=== PATIENT | female | born 1960 | race Caucasian/White ===

== ENCOUNTER 2020-08-22 13:37 | Observation (INO) | payer MEDICARE ==
[~2020-08-22] VITALS: Ht 162.6 cm; Wt 78.6 kg
--- NOTE | 2020-08-22 13:40 | NUR ---
PT IMMEDIATELY TO ROOM 14 VIA WHEELCHAIR WITH NEIGHBOR/FRIEND. BEDSIDE TRIAGE COMPLETED.
[2020-08-22 14:10] LABS: HEMATOCRIT 38.4 % (37.0-47.0); HEMOGLOBIN 13.1 g/dl (12.0-16.0); IMMATURE GRANULOCYTES 0.1 % (0.0-5.0); MEAN CELL VOLUME 88.3 fL CALC (80.0-100.0); MEAN CORPUSCULAR HGB 30.1 pG CALC (26.0-32.0); MEAN CORPUSCULAR HGB CONC 34.1 g/dL CAL (32.0-36.0); NEUT# 4.36 thou/uL (2.00-7.15); RED BLOOD COUNT 4.35 mill/uL (4.20-5.60); RED CELL DISTRI WIDTH 13.2 % (11.5-15.5)
--- NOTE | 2020-08-22 14:14 | NUR ---
Reassessment of patient completed. No distress noted.
[2020-08-22] MEDS ORDERED: METOPROL TAR100 MG PO (14:16)
[2020-08-22] MEDS ORDERED: OMEPRAZOLE20 MG PO (14:16)
[2020-08-22] MEDS ORDERED: SIMVASTATIN40 MG PO (14:16)
[2020-08-22] MEDS ORDERED: LISINOPRIL20 M1 PO (14:16)
[2020-08-22] MEDS ORDERED: METFORMIN HCL1000 MG PO (14:17)
[2020-08-22] MEDS ORDERED: LANTUS100 UNIT/M SC (14:17)
[2020-08-22] MEDS ORDERED: ASPIRIN 81 LOW81 MG PO (14:21)
[2020-08-22] MEDS ORDERED: NOVOLOG100 UNIT/M SC (14:21)
[2020-08-22] MEDS ORDERED: MAGNESIUM500 MG PO (14:22)
[2020-08-22] MEDS ORDERED: ZINC50 M1 PO (14:22)
[2020-08-22] MEDS ORDERED: POTASSIUM GLUC PO (14:22)
[2020-08-22] MEDS ORDERED: L-LYSINE1000 M1 PO (14:23)
[2020-08-22 14:24] LABS: ALBUMIN 4.8 g/dL (3.2-5.0); ALKALINE PHOSPHATASE 59 u/l (38-126); ANION GAP 14 (6-22 (CALC)); BILIRUBIN, TOTAL 0.7 mg/dL (0.0-1.4); BUN 13 mg/dL (8-23); BUN/CREATININE RATIO 14 (12-20 (CALC)); CARBON DIOXIDE 28 mmol/l (22-30); CHLORIDE 99 mmol/l (95-108); CREATININE 0.9 mg/dL (0.5-1.0); GFR > 60 ML/MIN (>=60 (CALC)); GFR FOR AFR.AMER. > 60 ML/MIN (>=60 (CALC)); SGOT/AST 47 u/l (9-36); SODIUM 137 mmol/l (137-146); TOTAL PROTEIN 7.6 g/dL (6.3-8.2)
--- NOTE | 2020-08-22 15:15 | NUR ---
Reassessment of patient completed. No distress noted.
--- NOTE | 2020-08-22 16:11 | NUR ---
Reassessment of patient completed. No distress noted.
--- NOTE | 2020-08-22 16:23 | NUR ---
REPORT CALLED TO SEAL
--- NOTE | 2020-08-22 16:51 | NUR ---
PT STABLE TRANSPORTED TO [facility] ON TELE BY SEAN
[2020-08-22 16:55] VITALS: BP 130/66
--- NOTE | 2020-08-22 17:01 | NUR ---
REPORT RECEIVED FROM TUCKER IN ED, PT ARRIVED ON UNIT VIA STRETCHER TRANSPORTED BY ED STAFF. ALERT AND ORIENTED X 4, C/O OR MIDSTERNAL PAIN @ 2/10, ORIENTED TO ROOM AND CALL BLOOD, SETTLED, EDUCATED ON INFECTION CONTROL (HAND HYGIENE, SOCIAL DISTANCING, MASK WEARING), WILL CONTINUE TO MONITOR AND ASSESS.
[2020-08-22 20:00] VITALS: BP 131/75
--- NOTE | 2020-08-22 22:47 | NUR ---
PT RESTING QUIETLY AT THIS TIME. PT REQUESTED MORE WATER AND A SNACK, PROVIDED PT WITH RELL CRACKERS AND PUDDING. BREATHING EVEN AND UNALABORED. LUNGS CTA. C/O CHEST PAIN WHILE GARDENING, TROPONINS ARE NEGATIVE, TELE IS SR @ 73 BPM. IV REMAINS TO LAC # 20, FLUSHES EASILY, SALINE LOCKED. NO COMPLAINTS OF PAIN AT THIS TIME. WILL MONITOR.
[2020-08-23] VITALS: BP 122/64
--- NOTE | 2020-08-23 00:23 | NUR ---
BALE BREAKER OPERATOR WITH PT, WILL MONITOR FOR RESULTS
--- NOTE | 2020-08-23 00:56 | NUR ---
PT RESTING QUIETLY IN BED. DENIES ANY NEEDS AT THIS TIME. BREATHING REMAINS EVEN AND UNLABORED. NO COMPLAINTS VOICED. WILL MONITOR.
[2020-08-23 04:00] VITALS: BP 120/70
--- NOTE | 2020-08-23 04:30 | NUR ---
PT RESTING QUIETLY IN BED WITH EYES CLOSED. NO COMPLAINTS VOICED, NO S/S OF DISTRESS NOTED. BREATHING EVEN AND UNLABORED. DENIES PAIN. BED IN LOWEST POSITION, CALL LIGHT WITHIN REACH. WILL CONTINUE TO MONITOR.
[2020-08-23 05:40] LABS: CHOLESTEROL HDL RATIO 3.1 (<4.4 (CALC)); MAGNESIUM 1.2 mg/dL (1.6-2.3)
[2020-08-23 08:00] VITALS: BP 122/76
--- NOTE | 2020-08-23 08:00 | NUR ---
PATIENT RESTING IN THE BED AX0X3. PT DENIES ANY C/P AT THIS TIME. EDUCATED ON BS AND INSULIN. ALL QUESTIONS ANSWERED. REPOSITIOEND FOR COMFORT, SIDE RAILS UP CALL LIGHT IN REACH BED LOCKED IN LOW POSITION, ALL SAFTY MEASURES IN PLACE. WILL CONTINUE TO MONIOTR THE PATIENT.
--- NOTE | 2020-08-23 09:38 | NUR ---
PT STATED SHE HAD A SMALL BROWN STOOL.
[2020-08-23 10:59] VITALS: BP 124/63
--- NOTE | 2020-08-23 12:17 | NUR ---
PT HAS A DISCHARGE ORDER TO GO TO HER OWN HOME. WILL DISCHARGE PATIENT UPON COMPLETION OF IV MG.
--- NOTE | 2020-08-23 13:10 | NUR ---
PT IV AND TELE REMOVED.
--- NOTE | 2020-08-23 13:20 | NUR ---
DISCHARGE ORDERS GIVEN UNDERSTOOD AND SIGNED BY THE PT PATIENT LEFT TO GO TO HER OWN HOME.
== END 2020-08-23 12:04 | disposition home or self-care (01) ==
LOC: ED 13:37 → ED-I 14:45 → ED 14:57 → MS2 14:58
PROVIDERS: Family Medicine; ADMIT Internal Medicine; ATTEND Internal Medicine
DX: R07.9 Chest pain, unspecified (principal); I10 Essential (primary) hypertension; E11.9 Type 2 diabetes mellitus without complications; I25.10 Atherosclerotic heart disease of native coronary artery without angina pectoris; E78.5 Hyperlipidemia, unspecified; K21.9 Gastro-esophageal reflux disease without esophagitis; Z95.5 Presence of coronary angioplasty implant and graft; Z85.528 Personal history of other malignant neoplasm of kidney; Z79.4 Long term (current) use of insulin; Z20.822 Contact with and (suspected) exposure to COVID-19
CPT/HCPCS: J3475

== ENCOUNTER 2020-12-17 12:30 | Inpatient (IN) | payer MEDICARE ==
[~2020-12-17] VITALS: Ht 162.6 cm; Wt 82.0 kg
[~2020-12-17 12:30] MED LIST: ASPIRIN 81 LOW81 MG PO; L-LYSINE1000 M1 PO; LANTUS100 UNIT/M SC; LISINOPRIL20 M1 PO; MAGNESIUM500 MG PO; METFORMIN HCL1000 MG PO; METOPROL TAR100 MG PO; NOVOLOG100 UNIT/M SC; OMEPRAZOLE20 MG PO; POTASSIUM GLUC PO; SIMVASTATIN40 MG PO; ZINC50 M1 PO
--- NOTE | 2020-12-17 12:55 | NUR ---
TO ROOM VIA WHEELCHAIR, ACCOMPANIED BY VISITOR.
[2020-12-17 13:30] LABS: URINE BILIRUBIN - DIPSTICK NEGATIVE (NEGATIVE); URINE BLOOD DIPSTICK NEGATIVE (NEGATIVE); URINE COLOR YELLOW; URINE GLUCOSE - DIPSTICK NEGATIVE (NEGATIVE); URINE KETONE NEGATIVE (NEGATIVE); URINE PROTEIN - DIPSTICK NEGATIVE (NEG-TRACE); URINE UROBILINOGEN - DIPSTICK 0.2 E.U./dL (0.2)
[2020-12-17 13:31] LABS: URINE LEUK ESTERASE MODERATE (NEGATIVE); URINE NITRITE - DIPSTICK NEGATIVE (Negative)
--- NOTE | 2020-12-17 13:32 | NUR ---
STROKE ALERT CALLED PER DR REYES AND HIS EXAMINATION
[2020-12-17 13:40] LABS: URINE BACTERIA FEW hpf; URINE SQUAMOUS EPITHELIAL CELL FEW EPI/hpf (0-FEW)
[2020-12-17 13:57] LABS: GFR > 60 ML/MIN (>=60 (CALC)); GFR FOR AFR.AMER. > 60 ML/MIN (>=60 (CALC))
[2020-12-17 14:01] LABS: HEMATOCRIT 37.9 % (37.0-47.0); HEMOGLOBIN 12.7 g/dl (12.0-16.0); IMMATURE GRANULOCYTES 0.2 % (0.0-5.0); MEAN CELL VOLUME 86.9 fL CALC (80.0-100.0); MEAN CORPUSCULAR HGB 29.1 pG CALC (26.0-32.0); MEAN CORPUSCULAR HGB CONC 33.5 g/dL CAL (32.0-36.0); NEUT# 4.09 thou/uL (2.00-7.15); RED BLOOD COUNT 4.36 mill/uL (4.20-5.60); RED CELL DISTRI WIDTH 12.8 % (11.5-15.5)
[2020-12-17 14:24] LABS: ALBUMIN 4.1 g/dL (3.2-5.0); ALKALINE PHOSPHATASE 57 u/l (38-126); ANION GAP 14 (6-22 (CALC)); BILIRUBIN, TOTAL 0.2 mg/dL (0.0-1.4); BUN 12 mg/dL (8-23); BUN/CREATININE RATIO 15 (12-20 (CALC)); CARBON DIOXIDE 26 mmol/l (22-30); CHLORIDE 100 mmol/l (95-108); CREATININE 0.8 mg/dL (0.5-1.0); GFR > 60 ML/MIN (>=60 (CALC)); GFR FOR AFR.AMER. > 60 ML/MIN (>=60 (CALC)); LIPASE 225 u/l (23-300); POTASSIUM 3.9 mmol/l (3.5-5.1); SGOT/AST 31 u/l (9-36); SODIUM 136 mmol/l (137-146); TOTAL PROTEIN 7.1 g/dL (6.3-8.2)
--- NOTE | 2020-12-17 14:30 | NUR ---
PATIENT RETURNS FROM RAD AT THIS TIME, AAOX4, NO DISTRESS. PLAN REVIEWED.
--- NOTE | 2020-12-17 16:22 | NUR ---
UNABLE TO RECONCILE MEDICATIONS AT THIS TIME, PATIENT DOES NOT HAVE A LIST AND CANNOT CONFIRM NAMES OR DOSAGES. PHARMACY CONSULT ENTERED.
--- NOTE | 2020-12-17 16:30 | NUR ---
PT NEXT OF KIN IS DAUGHTER, SPOKE WITH DAUGHTER. SHE DOESN'T KNOW HER MOMS MEDS OR WHICH PHARMACY SHE FILLS AT. WILL TRY TO F/U WITH PT
[2020-12-17] MEDS ORDERED: EQ ASPIRIN81 MG PO (16:55)
[2020-12-17] MEDS ORDERED: POTASSIUM GLUC PO (16:55)
[2020-12-17] MEDS ORDERED: L-LYSINE500 M3 PO (16:56)
[2020-12-17] MEDS ORDERED: MAGNESIUM200 MG PO (16:56)
[2020-12-17] MEDS ORDERED: LANTUS100 UNIT SC (16:56)
[2020-12-17] MEDS ORDERED: LISINOPRIL20 MG PO (16:57)
[2020-12-17] MEDS ORDERED: ALLERCLEAR10 M1 PO (16:57)
[2020-12-17] MEDS ORDERED: NOVOLOG100 UNIT SC (16:57)
[2020-12-17] MEDS ORDERED: NITROGLYCERIN0.4 MG PO (16:58)
[2020-12-17] MEDS ORDERED: TOPROL XL100 MG PO (16:58)
[2020-12-17] MEDS ORDERED: SIMVASTATIN40 MG PO (16:58)
[2020-12-17] MEDS ORDERED: DICYCLOMINE10 MG PO (16:59)
[2020-12-17] MEDS ORDERED: ISOSORB MONO30 MG PO (16:59)
[2020-12-17] MEDS ORDERED: PLAVIX75 MG PO (16:59)
[2020-12-17] MEDS ORDERED: METFORMIN500 M2 PO (16:59)
[2020-12-17] MEDS ORDERED: PROTONIX40 M2 PO (17:00)
[2020-12-17] MEDS ORDERED: SUCRALFATE1 GM PO (17:00)
--- NOTE | 2020-12-17 17:08 | NUR ---
REPORT CALLED TO SEAN VALDEZ
--- NOTE | 2020-12-17 17:45 | NUR ---
Admission Note Report Given to: Transported by: Wheelchair X Stretcher Transported with: X Nurse Transporter X Patent IV O2 X Marketing Professional Location: X ICU MS2
[2020-12-17 18:00] VITALS: BP 142/70
--- NOTE | 2020-12-17 18:00 | NUR ---
RECEIVED PATIENT FROM ED. PATIENT WALKED FROM STRETCHER TO BED WITHOUT DIFFICULTY. PATIENT SET UP ON HEARING HEALTH TECHNICIAN AT THIS TIME PATIENT IN SINUS RHYTHM AT THIS TIME HR IS 75 BEATS PER MIN. PATIENT RESPIRATIONS ARE EASY AND UNLABORED AT THIS TIME. BP IS 142/70. PATIENT IS ALERT AND ORIENTED AT THIS TIME X 3. PATIENT NIH SCORE IS 0 AND PATIENT STATES THAT HER PAIN LEVEL IS A 3 CURRENTLY AND THE PAIN COMES AND GOES IN HER ABDOMINAL AREA. ABDOMENIAL AREA IS SOFT AND DISTENTED AT THIS TIME. PATIENT STATE THAT WHILE IN ED SHE HAD TWO BM'S AND THEY WERE NORMAL. PATIENT NEURO CHECK IS NEGATIVE AT THIS TIME. PATIENT WAS GIVEN ROOM ORIENTTATION AND PATIENT GIVEN SAFETY ORIENTATION AND PATIENT VERBALIZES UNDERSTANDING TO CALL FOR ASSISTANCE BEFOR GETTING UP. TERESO REFUSED TO WEAR SCD'S AT THIS TIME. SIDERAILS ARE UP CALL LIGHT IS WITHIN REACH AND PATIENT IS EATING A DINNER TRAY AT THIS TIME
[2020-12-17 19:00] VITALS: BP 105/52
--- NOTE | 2020-12-17 19:15 | NUR ---
REPORT RECEIVED FROM CHAN ESTRADA, PATIENT CARE ASSUMED AT THIS TIME.
--- NOTE | 2020-12-17 19:30 | NUR ---
PATIENT RESTING WATCHING TV COMFORTABLY IN BED. NO APPARENT DISTRESS. ASSEMENT COMPLETED AT THIS TIME, NORMAL SYNUS RYTHM, CLEAR BILATERAL LUNGS SOUNDS AND ACTIVE BOWEL SOUNDS. NO SWELLING NOTED. PATENT IV SITE LOCATED AT THE RIGH ANTECUBITAL #20. PATIENT ASSITED TO THE RESTROOM AT THIS TIME. PATIENT STATES SHE ONLY TAKES METFORMIN AT NIGHT, LEVEMIR 40 UNITS IS ONLY IN THE MORNINGS, WELL HER ATORVASTATIN. PATIENT IS REFUSING LOVENOX INJECTION AT THIS TIME, STATES SHE TAKES BLOOD THINNERS AT HOME. PLAVIX AND ASPIRIN ARE NOTED ON PATIENTS MED LIST. EDUCATED ABOUT THE DIFFERENCE IN MEDICATIONS, PATIENT REFUSED LOVENOX INJECTION. PLAN OF CARE REVIEWED AT THIS TIME, PATIENT VERBALIZES UNDERSTANDING. CALL LIGHT AND BEDSIDE TABLE WITHIN REACH. PATIENT INSTRUCTED TO CALL.
[2020-12-17 20:00] VITALS: BP 114/60
--- NOTE | 2020-12-17 20:13 | NUR ---
PT RESTING IN BED, ALERT AND AWAKE. PLAN OF CARE REVIEWED WITH PT. PT ADVISED Yee FERGUSON RN WILL BE ASSIGNED PRIMARY NURSE. PT VERBALIZES UNDERSTANDING AND VERBALIZES AGREEMENT. PT DENIES NEEDS AT THIS TIME. CALL BLOOD WITHIN REACH, AGRESS TO CALL PRN.
[2020-12-17 21:00] VITALS: BP 116/56
[2020-12-17 22:00] VITALS: BP 125/58
--- NOTE | 2020-12-17 22:30 | NUR ---
PATIENT WATCHIGN TV, NO COMPLAINT OF PAIN, NO APPARENT NEEDS AT THIS TIME. BEDSIDE TABLE AND CALL LIGHT WITHIN REACH.
[2020-12-17 23:00] VITALS: BP 103/59
[2020-12-18] VITALS (8 sets, daily range): BP systolic 98–131; BP diastolic 43–71
--- NOTE | 2020-12-18 00:23 | NUR ---
Noble STARKEY ON ROOM COLLECTING LAB SPECIMEN.
--- NOTE | 2020-12-18 02:00 | NUR ---
PATIENT SLEEPING COMFORTABLY. BEDSIDE TABLE AND CALL LIGHT WITHIN REACH.
--- NOTE | 2020-12-18 05:50 | NUR ---
LEE IN ROOM COLLECTING BLOOD SPECIMEN.
--- NOTE | 2020-12-18 05:51 | NUR ---
Noble STARKEY IN ROOM COLLECTING BLOOD SPECIMEN.
[2020-12-18 06:11] LABS: HEMATOCRIT 35.5 % (37.0-47.0); MEAN CELL VOLUME 87.4 fL CALC (80.0-100.0); MEAN CORPUSCULAR HGB 29.6 pG CALC (26.0-32.0); MEAN CORPUSCULAR HGB CONC 33.8 g/dL CAL (32.0-36.0); RED BLOOD COUNT 4.06 mill/uL (4.20-5.60); RED CELL DISTRI WIDTH 12.9 % (11.5-15.5)
[2020-12-18 06:23] LABS: ANION GAP 13 (6-22 (CALC)); BUN 11 mg/dL (8-23); BUN/CREATININE RATIO 15 (12-20 (CALC)); CALCULATED LDLCHOLESTEROL 58 mg/dL (62-129 (CALC)); CARBON DIOXIDE 25 mmol/l (22-30); CHLORIDE 103 mmol/l (95-108); CHOLESTEROL HDL RATIO 3.4 (<4.4 (CALC)); CREATININE 0.8 mg/dL (0.5-1.0); GFR > 60 ML/MIN (>=60 (CALC)); GFR FOR AFR.AMER. > 60 ML/MIN (>=60 (CALC)); HDL CHOLESTEROL 39 mg/dL (>=40); MAGNESIUM 1.3 mg/dL (1.6-2.3); POTASSIUM 3.9 mmol/l (3.5-5.1); SODIUM 136 mmol/l (137-146); TOTAL CHOLESTEROL 134 mg/dl (0-199); TOTAL TRIGLYCERIDES 183 mg/dl (30-149); VLDL CHOLESTROL 37 mg/dl (1-41 (CALC))
--- NOTE | 2020-12-18 07:00 | NUR ---
BLOOD GLUCOSE ACCU CHECK DONE AT THIS TIME AND RESULTS ARE 112. NO NEED FOR SLIDING SCALE COVERAGE AT THIS TIME. PATIENT ALSO EDUCATION ON TAKING HER CHOLESTEROL MEDICATION AT NIGHT AND THE BENEFITS OF THE ACTION OF THE MEDICATION. PATIENT STATED SHE WAS UNAWARE OF WHY IT WAS IMPORTANT TO TAKE THE MEDICATION AT NIGHT AND DIDN'T KNOW THAT SHE WILL TAKE IT AT NIGHT GOING FORWARD.
--- NOTE | 2020-12-18 08:00 | NUR ---
PATIENT SITTING AT BEDSIDE AT THIS TIME. PATIENT DENIES ANY PAIN AND OR DIZZINESS. NEURO CHECKS REMAIN NEGATIVE AT THIS TIME. GRASP ARE EQUAL, SPEECH CLEAR, NO DRIFTS NOTED ON ANY EXTREMITIES. PUBLIC RELATIONS INTERN DONE SEE INTERVENTIONS. LUNG FIELD ARE CLEAR AND BOWEL SOUNDS ARE PRESENT IN ALL FOUR QUADRANTS. BOTTOM POUNDER CEMENT SHOES CURRENT READING IS SINUS RHYTHM AT 70 BEATS PER MIN. RESPIRATIONS EASY AND UNLABORED AT 20 AND BP CURRENTLY IS 105/46. PATIENT WILL CONTINUE TO BE MONITORED. SIDERAILS ARE UP CALL LIGHT AND PERSONAL ITEMS ARE WITHIN REACH.
--- NOTE | 2020-12-18 09:26 | NUR ---
PATIENT OFF FLOOR AT THIS TIME FOR MRI.
--- NOTE | 2020-12-18 10:00 | NUR ---
PATIENT REMAINS OFF UNIT AT THIS TIME IN MRI.
--- NOTE | 2020-12-18 10:33 | NUR ---
PATIENT RETURNED FROM MRI AT THIS TIME. PATIENT SET BACK UP ON MONITORS.
--- NOTE | 2020-12-18 11:00 | NUR ---
ACCU CHECK DONE AT THIS TIME. RESULTS ARE 206, 2 UNITS OF SLIDING SCALE COVERAGE GIVEN AT THIS TIME.
--- NOTE | 2020-12-18 11:56 | NUR ---
PATIENT SITTING AT BEDSIDE AT THIS TIME. PATIENT CLIFTON PAIN AND NEURO CHECKS REMAIN UNCHANGED AND ARE NEGATIVE FOR ANY DEFICITS. PATIENT IS ON ROOM AIR AND SPO2 IS 100%. BP AT THIS TIME IS 104/64. RESPIRATIONS ARE EASY AND UNLABORED AND PATIENT IS ALERT AND ORIENTED X 3. SIDERAILS ARE UP CALL LIGHT IS WITHIN REACH.
--- NOTE | 2020-12-18 12:14 | NUR ---
DR. KIRAN IN TO SEE PATIENT AT THIS TIME. DR. KIRAN ASKED TO CONSULT DR. LUEVANO AND THIS NURSE CALLED AND SPOKE TO JUNIOR (NURSE) TO SET UP CONSULT AT THIS TIME.
--- NOTE | 2020-12-18 14:14 | NUR ---
PATIENT LAYING IN BED RESTING AT THIS TIME. DENIES ANY NEEDS AT THIS TIME.
--- NOTE | 2020-12-18 16:00 | NUR ---
TERESO LAYING IN BED AT THIS TIME. PATIENT DENEIS ANY NEEDS CURRENTLY PATIENT STATES SHE HAS PAIN "EVERY NOW AND THEN" AND IT GOES AWAY. PATIENT VITAL SIGNS TAKEN SEE INTERVENTIONS. PATIENT UP TO BATHROOM WITH MIN. ASSIST. SECURITY EXPERT READING: HR 84 BP; 126/54 PATIENT ON ROOM AIR AND SPO2 IS 94 %. SIDERAILS ARE UP CALL LIGHT IS WITHIN REACH.
--- NOTE | 2020-12-18 17:00 | NUR ---
BLOOD GLUCOSE ACCU CHECK DONE AT THIS TIME AND RESULTS ARE 260. IT WAS EXPLAINED TO PATIENT THAT SHE WOULD BE RECEIVING 3 UNITS OF SLIDING SCALE INSULIN AT THIS TIME. PATIENT WAS UPSET AND STATED SHE NEEDED TO BE GIVEN 10 OR 12 UNITS FOR HER RESULTS OF 260 AND IF I WAS NOT GOING TO GIVE HER 10 OR 12 UNITS TO NOT BRING IN HER DINNER BECAUSE SHE WASN'T GOING TO EAT DUE TO HER ACCU CHECK BEING SO HIGH. PATIENT WAS EDUCATED ON THE RISK AND BENEFITS BUT PATIENT STATED "I'M NOT EATING". PATIENT DID ACCEPT THE 3 UNITS OF INSULIN AND AT THIS TIME AND WILL CONTINUE TO BE MONITORED.
--- NOTE | 2020-12-18 17:15 | NUR ---
PATIENT DID EAT DINNER AT THIS TIME AND ATE 100% OF HER DINNER.
--- NOTE | 2020-12-18 20:05 | NUR ---
RESTING IN BED. VSS. RESP NON-LABORED. RA O2 SAT 97% BREATH SOUNDS CLEAR THROUGHOUT LUNG FAIRCHILD. NO NEURO DEFICITS IDENTIFIED. NO PERIPHERAL EDEMA, PULSES PALPABLE AND STRONG. SALINE LOCK IN PLACE IN RAC. JAVASCRIPT SOFTWARE ENGINEER SHOWS SR. DISCUSSED PLAN OF CARE. PATIENT IS CURRENTLY MED/SURG OVERFLOW. PATIENT AWARE THAT SHE MAY BE TRANSFERRED TO MED/SURG TONIGHT AND VOICES UNDERSTANDING. DENIES NEEDS AT THIS TIME.
--- NOTE | 2020-12-18 21:55 | NUR ---
REPORT GIVEN TO JESSICA/RN ON MED/SURG.
--- NOTE | 2020-12-18 22:00 | NUR ---
PATIENT TRANSFERRED TO MED/SURG ROOM 274 VIA W/C WITH BELONGINGS.
--- NOTE | 2020-12-18 22:30 | NUR ---
RECEIVED PATIENT TO ROOM 274 VIA WC FROM ICU IN STABLE CONDITION. PATIENT ASKED TO BE MOVED FROM 274 TO A DIFFERENT ROOM. PATIENT CHANGED TO ROOM 276. ASSESSMENT COMPLETED AND CHARTED. NO ACUTE DISTRESS NOTED.
--- NOTE | 2020-12-19 | NUR ---
RESTING QUIETLY. NO ACUTE DISTRESS NOTED. BED IN LOW POSITION. CALL LIGHT WITHIN REACH.
--- NOTE | 2020-12-19 04:27 | NUR ---
NO CHANGES NOTED.
[2020-12-19 05:04] VITALS: BP 104/63
[2020-12-19 07:39] VITALS: BP 127/62
--- NOTE | 2020-12-19 08:00 | NUR ---
PT IN BED UPON ENTERING ROOM. VITALS AND ASSESSMENT DONE. PT IS ALERT AND ORIENTED. S1 AND S2 HEARD. LUNG SOUNDS CLEAR BILATERALLY. IV PATENT AND HEALTHY. BOWEL SOUNDS ACTIVE IN ALL 4 QUADRANTS. PEDAL PULSES EQUALLY STRONG BILATERALLY. NO DISTRESS NOTED. CALL LIGHT WITHIN REACH.
--- NOTE | 2020-12-19 12:00 | NUR ---
PT SITTING UP IN BED ON PHONE. NO DISTESS NOTED. PT'S CALL LIGHT WITHIN REACH.
[2020-12-19 14:15] VITALS: BP 99/52
--- NOTE | 2020-12-19 16:00 | NUR ---
PT IN BED. NO DISTRESS NOTED. CALL LIGHT WITHIN REACH.
[2020-12-19 19:00] VITALS: BP 99/59
--- NOTE | 2020-12-19 21:00 | NUR ---
PATIENT UP AND AMBULATING IN HALLWAY WITHOUT DIFFICULTY. DENIES PAIN. VAD S/L ASSESSMENT COMPLETE AND CHARTED. NO ACUTE DISTRESS NOTED.
--- NOTE | 2020-12-20 02:05 | NUR ---
PATIENT RESTING IN BED WITH EYES CLOSED. RESPIRATIONS SLOW AND NONLABORED. NO ACUTE DISTRESS NOTED. EVENING DOSE OF LEVEMIR AND LOVENOX SUBQ REFUSED FOR EVENING MED PASS. BED IN LOW POSITION. CALL LIGHT WITHIN REACH.
[2020-12-20 03:47] VITALS: BP 98/8
--- NOTE | 2020-12-20 04:25 | NUR ---
RESTING QUIETLY. NO ACUTE DISTRESS NOTED.
[2020-12-20 05:34] LABS: HEMATOCRIT 36.4 % (37.0-47.0); HEMOGLOBIN 12.1 g/dl (12.0-16.0); MEAN CELL VOLUME 87.5 fL CALC (80.0-100.0); MEAN CORPUSCULAR HGB 29.1 pG CALC (26.0-32.0); MEAN CORPUSCULAR HGB CONC 33.2 g/dL CAL (32.0-36.0); RED BLOOD COUNT 4.16 mill/uL (4.20-5.60)
[2020-12-20 05:54] LABS: ANION GAP 12 (6-22 (CALC)); BUN 12 mg/dL (8-23); BUN/CREATININE RATIO 15 (12-20 (CALC)); CARBON DIOXIDE 27 mmol/l (22-30); CHLORIDE 103 mmol/l (95-108); CREATININE 0.8 mg/dL (0.5-1.0); GFR > 60 ML/MIN (>=60 (CALC)); GFR FOR AFR.AMER. > 60 ML/MIN (>=60 (CALC)); SODIUM 138 mmol/l (137-146)
--- NOTE | 2020-12-20 08:00 | NUR ---
PT WAS FOUND RESTING IN BED IN SEMI-KRAUSE'S POSITION;PT IS A&OX3;VS AND ASSESSMENT WERE COMPLETED;HEART SOUNDS ARE REGULAR IN RATE AND RHYTHM;LUNG SOUNDS ARE CLEAR;RESPIRATIONS ARE EVEN AND UNLABORED ON RA;#20G IV IN RW IS SL,PATENT AND APPEARS FREE OF COMPLICATIONS AT THIS TIME;ABDOMEN IS SOFT AND ACTIVE BOWEL SOUNDS NOTED IN ALL QUADRANTS; SAFETY PRECAUTIONS IN PLACE;CALL LIGHT WITHIN REACH;PT ENCOURAGED TO CALL WITH ANY NEEDS OR CONCERNS;WILL CONTINUE TO MONITOR.
[2020-12-20 08:30] VITALS: BP 125/70
[2020-12-20 11:28] LABS: AMYLASE 48 u/l (30-110); LIPASE 194 u/l (23-300)
--- NOTE | 2020-12-20 12:00 | NUR ---
PT WAS FOUND RESTING IN BED EATING LUNCH;PT HAS NO COMPLAINTS AT THIS TIME;SAFETY PRECAUTIONS IN PLACE;CALL LIGHT WITHIN REACH;WILL CONTINUE TO MONITOR.
[2020-12-20 16:00] VITALS: BP 101/56
--- NOTE | 2020-12-20 16:00 | NUR ---
PT WAS FOUND SLEEPING IN BED;#22G IV IN RAC IS RUNNING NS@80ML/HR;IV SITE IS PATENT AND APPEARS FREE OF COMPLICATIONS AT THIS TIME;SAFETY PRECAUTIONS IN PLACE;CALL LIGHT WITHIN REACH;WILL CONTINUE TO MONITOR.
[2020-12-20 18:40] VITALS: BP 96/61
--- NOTE | 2020-12-20 19:30 | NUR ---
PATIENT UP AND AMBULATING IN THE SOUSA-STEADY GAIT. ALERT AND ORIENTEDX3. PATIENT WITH NO COMPLAINTS AT THIS TIME. IVF NS PATENT AND INFUSING VIA RAC SITE AT 80CC/HR. SITE REMAINS HEALTHY AT THIS TIME. PATIENT STATES THAT SHE HAS HAD 2 BM'S TODAY-NO DIARRHEA. DENIES ANY DIFFICULTY WITH URINATION. LUNGS ARE CLEAR. ABD IS SOFT WITH BS+. NO PERIPOHERAL EDEMA NOTED. PULSES ARE PALPABLE. SAFETY PRECAUTIONS REINFORCED. CALL LIGHT IN REACH. WILL CONT TO MONITOR.
--- NOTE | 2020-12-20 21:00 | NUR ---
PATIENT RESTING IN ULD-HOXJ-TQEQG WAS 214-COVERED WITH HUMALOG PER COVERAGE PROTOCOL. HS SNACK PROVIDED. PATIENT REFUSED LOVENOX-STATES THAT SHE IS ALREADY TAKING PLAVIX AND IS UP AND AMBULATING. CALL LIGHT IN REACH. WILL CONT TO MONITOR.
--- NOTE | 2020-12-20 23:26 | NUR ---
PATIENT RESTING IN OUD-IZMA-CDQHN WAS 214-COVERED WITH HUMALOG PER COVERAGE PROTOCOL. HS SNACK PROVIDED. PATIENT REFUSED LOVENOX-STATES THAT SHE IS ALREADY TAKING PLAVIX AND IS UP AND AMBULATING. CALL LIGHT IN REACH. WILL CONT TO MONITOR.
--- NOTE | 2020-12-21 | NUR ---
PATIENT POSITIONED ON LEFTS SIDE WITH HER EYES CLOSED. RESPS ARE EVEN AND UNLABORED. IVF PATENT AND INFUSING VIA RAC SITE AT 80CC/HR. CALL LIGHT IN REACH. WILL CONT TO MONITOR.
[2020-12-21 04:00] VITALS: BP 119/67
--- NOTE | 2020-12-21 04:06 | NUR ---
PATIENT RESTING IN BED AND PROVIDED WITH ICE CHIPS PER PATIENT REQUEST. NO COMPLAINTS AT THIS TIME. IVF NS PATENT AND INFUSING VIA RAC AT 80CC/HR. SITE REMAINS HEALTHY AT THIS TIME. CALL LIGHT IN REACH. WILL CONT TO MONITOR.
--- NOTE | 2020-12-21 07:00 | NUR ---
PT REPORT RECEIVED FROM NIGHT NURSEJADON.
--- NOTE | 2020-12-21 08:00 | NUR ---
PT WAS FOUND SLEEPING IN BED;PT AROUSED TO VERBAL STIMULI;PT IS A&OX3;VS AND ASSESSMENT WERE COMPLETED;PT IS REPORTING NO PAIN AT THIS TIME;HEART SOUNDS ARE REGULAR IN RATE AND RHYTHM;LUNG SOUNDS ARE CLEAR;RESPIRATIONS ARE EVEN AND UNLABORED ON RA;ABDOMEN IS SOFT AND ACTIVE BOWELS SOUNDS ARE PRESENT IN ALL QUADRANTS;#22G IV IN RAC IS RUNNING NS@80 ML/HR;IV SITE IS PATENT AND APPEARS FREE OF COMPLICATIONS AT THIS TIME;SAFETY PRECAUTIONS IN PLACE;CALL LIGHT WITHIN REACH;PT ENCOURAGED TO CALL WITH ANY NEEDS OR CONCERNS;WILL CONTINUE TO MONITOR.
[2020-12-21 09:20] VITALS: BP 117/69
[2020-12-21 09:58] VITALS: BP 117/69
--- NOTE | 2020-12-21 10:00 | NUR ---
AND KETAN Winters AT BEDSIDE DISCUSSING POC WITH PT.
[2020-12-21] MEDS ORDERED: METRONIDAZOL500 MG PO (10:21)
[2020-12-21] MEDS ORDERED: CIPROFLOXACN500 MG PO (10:22)
--- NOTE | 2020-12-21 12:00 | NUR ---
PT WAS FOUND RELAXING IN BED EATING LUNCH;PT HAS NO COMPLAINTS OF PAIN AT THIS TIME;IVF INFUSING;SAFETY PRECAUTIONS IN PLACE;WILL CONTINUE TO MONITOR.
--- NOTE | 2020-12-21 15:09 | NUR ---
Discharge instructions given. Patient verbalizes understanding of same. Discharged in stable condition via Wheelchair to Home with family. All belongings sent with pt. DISCHARGE PACKET WAS GIVEN TO PT;DISCHARGE INSTRUCTIONS WERE EXPLAINED TO PT ALONG WITH INSTRUCTIONS FOR NEW PRESCRIPTIONS;PT EXPRESSED UNDERSTANDING AND HAD NO FURTHER QUESTIONS FOR ME;SIGNATURE WAS OBTAINED;PT WILL BE TRANSPORTED HOME WITH FAMILY PT WAS TRANSPORTED IN STABLE CONDITION TO [facility] VIA ACCOMPANIED BY STAFF;ALL PT BELONGINGS WERE SENT WITH PT;PT WILL BE TRANSPORTED HOME WITH FAMILY.
--- NOTE | 2020-12-22 12:05 | NUR ---
NEW RXS FOR CIPRO AND FLAGYL DIDN'T TRANSMIT. SPOKE WITH PASHA VALENZUELA AT [facility], GAVE RXS VERBALLY.
== END 2020-12-21 15:10 | disposition home or self-care (01) | DRG 392 ==
LOC: ED 12:30 → ED-I 15:30 → ED 15:47 → ICU 15:48 → MS2 12-18 22:00
PROVIDERS: Family Medicine; Nurse Practitioner; Physician Assistant; ADMIT Internal Medicine; ATTEND Internal Medicine
DX: K57.20 Diverticulitis of large intestine with perforation and abscess without bleeding (principal); I10 Essential (primary) hypertension; E11.9 Type 2 diabetes mellitus without complications; I25.10 Atherosclerotic heart disease of native coronary artery without angina pectoris; E78.5 Hyperlipidemia, unspecified; R20.0 Anesthesia of skin; K21.9 Gastro-esophageal reflux disease without esophagitis; Z95.5 Presence of coronary angioplasty implant and graft; Z85.528 Personal history of other malignant neoplasm of kidney; Z90.5 Acquired absence of kidney; Z79.4 Long term (current) use of insulin; Z20.822 Contact with and (suspected) exposure to COVID-19; R10.9 Unspecified abdominal pain; E11.65 Type 2 diabetes mellitus with hyperglycemia; E78.2 Mixed hyperlipidemia; I25.119 Atherosclerotic heart disease of native coronary artery with unspecified angina pectoris
CPT/HCPCS: G0378; J1650; J3475; Q9967

== ENCOUNTER 2021-05-25 12:17 | Emergency (ER) | payer MEDICARE ==
[~2021-05-25] VITALS: Ht 162.6 cm; Wt 81.0 kg
[~2021-05-25 12:17] MED LIST changes: +ALLERCLEAR10 M1 PO; +CIPROFLOXACN500 MG PO; +DICYCLOMINE10 MG PO; +EQ ASPIRIN81 MG PO; +ISOSORB MONO30 MG PO; +L-LYSINE500 M3 PO; +LANTUS100 UNIT SC; +LISINOPRIL20 MG PO; +MAGNESIUM200 MG PO; +METFORMIN500 M2 PO; +METRONIDAZOL500 MG PO; +NITROGLYCERIN0.4 MG PO; +NOVOLOG100 UNIT SC; +PLAVIX75 MG PO; +PROTONIX40 M2 PO; +SUCRALFATE1 GM PO; +TOPROL XL100 MG PO
[2021-05-25 13:51] LABS: URINE BILIRUBIN - DIPSTICK NEGATIVE (NEGATIVE); URINE BLOOD DIPSTICK NEGATIVE (NEGATIVE); URINE COLOR YELLOW; URINE GLUCOSE - DIPSTICK NEGATIVE (NEGATIVE); URINE KETONE NEGATIVE (NEGATIVE); URINE LEUK ESTERASE NEGATIVE (NEGATIVE); URINE PROTEIN - DIPSTICK NEGATIVE (NEG-TRACE); URINE UROBILINOGEN - DIPSTICK 0.2 E.U./dL (0.2)
[2021-05-25 13:52] LABS: HEMATOCRIT 37.2 % (37.0-47.0); HEMOGLOBIN 12.6 g/dl (12.0-16.0); IMMATURE GRANULOCYTES 0.2 % (0.0-5.0); MEAN CELL VOLUME 88.6 fL CALC (80.0-100.0); MEAN CORPUSCULAR HGB CONC 33.9 g/dL CAL (32.0-36.0); NEUT# 3.52 thou/uL (2.00-7.15); RED BLOOD COUNT 4.2 mill/uL (4.20-5.60); RED CELL DISTRI WIDTH 13.2 % (11.5-15.5); URINE NITRITE - DIPSTICK NEGATIVE (Negative)
[2021-05-25 14:06] LABS: ALBUMIN 4.2 g/dL (3.2-5.0); ALKALINE PHOSPHATASE 61 u/l (38-126); AMYLASE 67 u/l (30-110); ANION GAP 11 (6-22 (CALC)); BILIRUBIN, TOTAL 0.7 mg/dL (0.0-1.4); BUN 10 mg/dL (8-23); BUN/CREATININE RATIO 11 (12-20 (CALC)); CARBON DIOXIDE 29 mmol/l (22-30); CHLORIDE 101 mmol/l (95-108); CREATININE 0.9 mg/dL (0.5-1.0); GFR > 60 ML/MIN (>=60 (CALC)); GFR FOR AFR.AMER. > 60 ML/MIN (>=60 (CALC)); LIPASE 156 u/l (23-300); POTASSIUM 4.1 mmol/l (3.5-5.1); SGOT/AST 49 u/l (9-36); SODIUM 136 mmol/l (137-146); TOTAL PROTEIN 7.3 g/dL (6.3-8.2)
[2021-05-25 14:17] LABS: MYOGLOBIN 46 ng/mL (0 - 62)
[2021-05-25 15:43] VITALS: BP 135/97
[2021-05-25] MEDS ORDERED: ONDANSETRON4 MG PO (15:45)
[2021-05-25] MEDS ORDERED: ULTRAM50 M1 PO (15:54)
== END 2021-05-25 15:40 | disposition home or self-care (01) ==
LOC: ED 12:17
PROVIDERS: Emergency Medicine
DX: K52.9 Noninfective gastroenteritis and colitis, unspecified (principal); E11.9 Type 2 diabetes mellitus without complications; I10 Essential (primary) hypertension; E78.5 Hyperlipidemia, unspecified; Z95.5 Presence of coronary angioplasty implant and graft; Z79.84 Long term (current) use of oral hypoglycemic drugs; Z79.4 Long term (current) use of insulin
CPT/HCPCS: Q9967

== ENCOUNTER 2022-08-03 01:21 | Emergency (ER) | payer MEDICARE ==
[~2022-08-03 01:21] MED LIST changes: +ONDANSETRON4 MG PO; +ULTRAM50 M1 PO
== END 2022-08-03 02:30 | disposition left against medical advice (07) ==
LOC: ED 01:21 → LWOBS 02:30
DX: Z53.21 Procedure and treatment not carried out due to patient leaving prior to being seen by health care provider (principal)

== ENCOUNTER 2023-02-11 14:07 | Observation (INO) | payer MEDICARE ==
[~2023-02-11] VITALS: Ht 162.6 cm; Wt 78.6 kg
[2023-02-11] VITALS (12 sets, daily range): BP systolic 101–168; BP diastolic 49–83
[2023-02-11 15:16] LABS: BASO% 0.4 % (0-3); EOS% 1.7 % (0-8); HEMOGLOBIN 12.7 g/dl (12.0-16.0); IMMATURE GRANULOCYTES 0.1 % (0.0-5.0); LYMPH% 26.5 % (15-41); MEAN CELL VOLUME 89.4 fL CALC (80.0-100.0); MEAN CORPUSCULAR HGB 30.7 pG CALC (26.0-32.0); MEAN CORPUSCULAR HGB CONC 34.3 g/dL CAL (32.0-36.0); NEUT# 5.17 thou/uL (2.00-7.15); NEUT% 63.3 % (42-76); RED BLOOD COUNT 4.14 mill/uL (4.20-5.60); RED CELL DISTRI WIDTH 12.4 % (11.5-15.5)
[2023-02-11 15:32] LABS: ALBUMIN 4.2 g/dL (3.2-5.0); ALKALINE PHOSPHATASE 63 u/l (38-126); ANION GAP 12 (6-22 (CALC)); BUN 27 mg/dL (8-23); BUN/CREATININE RATIO 24 (12-20 (CALC)); CALCULATED LDLCHOLESTEROL 75 mg/dL (62-129 (CALC)); CARBON DIOXIDE 28 mmol/l (22-30); CHLORIDE 101 mmol/l (95-108); CREATININE 1.1 mg/dL (0.5-1.0); GFR FOR AFR.AMER. > 60 ML/MIN (>=60 (CALC)); GFR OTHER RACES 50 ML/MIN (>=60 (CALC)); HDL CHOLESTEROL 61 mg/dL (39.0-59.0); INTERNATIONAL NORMALIZED RATIO 1.1 RATIO (0.7-1.3); PROTHROMBIN TIME 10.1 SECONDS (9.0-12.5); SGOT/AST 30 u/l (9-36); SODIUM 136 mmol/l (137-146); TOTAL PROTEIN 7.3 g/dL (6.3-8.2); TOTAL TRIGLYCERIDES 223 mg/dl (0-149); VLDL CHOLESTROL 45 mg/dl (1-41 (CALC))
[2023-02-11 15:42] LABS: BILIRUBIN, TOTAL 0.6 mg/dL (0.02-1.3); TOTAL CHOLESTEROL 181 mg/dl (0-199)
[2023-02-11 16:01] LABS: URINE BILIRUBIN - DIPSTICK Negative (NEGATIVE); URINE BLOOD DIPSTICK Negative (NEGATIVE); URINE GLUCOSE - DIPSTICK Negative (NEGATIVE); URINE KETONE Negative (NEGATIVE); URINE LEUK ESTERASE Trace (NEGATIVE); URINE NITRITE - DIPSTICK Negative (Negative); URINE PH 6.5 (4.5-8.0); URINE PROTEIN - DIPSTICK Negative (NEG-TRACE); URINE UROBILINOGEN - DIPSTICK 0.2 E.U./dL (0.2)
[2023-02-11 16:04] LABS: URINE COLOR Yellow
[2023-02-11] MEDS ORDERED: ISOSORB MONO30 MG PO (17:24)
[2023-02-11] MEDS ORDERED: B COMPLETE PO (17:25)
[2023-02-11] MEDS ORDERED: MAGNESIUM OXID400 M1 (17:26)
[2023-02-11] MEDS ORDERED: L-LYSINE500 M2 PO ×2 (17:28→17:29)
[2023-02-11] MEDS ORDERED: OZEMPIC4 MG (17:31)
[2023-02-11] MEDS ORDERED: B12 LIQUID SL (17:32)
[2023-02-12 05:46] LABS: BASO% 0.3 % (0-3); EOS% 2.6 % (0-8); HEMATOCRIT 33.8 % (37.0-47.0); HEMOGLOBIN 11.5 g/dl (12.0-16.0); LYMPH% 36.1 % (15-41); MEAN CELL VOLUME 91.4 fL CALC (80.0-100.0); MEAN CORPUSCULAR HGB 31.1 pG CALC (26.0-32.0); MONO% 10.3 % (2-13); NEUT# 2.97 thou/uL (2.00-7.15); NEUT% 50.7 % (42-76); RED BLOOD COUNT 3.7 mill/uL (4.20-5.60); RED CELL DISTRI WIDTH 12.5 % (11.5-15.5)
[2023-02-12 05:57] LABS: ALBUMIN 3.4 g/dL (3.2-5.0); ALKALINE PHOSPHATASE 52 u/l (38-126); ANION GAP 0 (6-22 (CALC)); BILIRUBIN, TOTAL 0.6 mg/dL (0.02-1.3); BUN 25 mg/dL (8-23); BUN/CREATININE RATIO 27 (12-20 (CALC)); CARBON DIOXIDE 26 mmol/l (22-30); CHLORIDE 106 mmol/l (95-108); CREATININE 0.9 mg/dL (0.5-1.0); GFR FOR AFR.AMER. > 60 ML/MIN (>=60 (CALC)); GFR OTHER RACES > 60 ML/MIN (>=60 (CALC)); MAGNESIUM 1.8 mg/dL (1.6-2.3); POTASSIUM 3.9 mmol/l (3.5-5.1); SGOT/AST 24 u/l (9-36); TOTAL PROTEIN 5.9 g/dL (6.3-8.2)
[2023-02-12 05:59] LABS: SODIUM 128 mmol/l (137-146)
[2023-02-12 06:31] VITALS: BP 136/77
[2023-02-12 06:31] LABS: TSH, 3RD GENERATION 1.26 uIU/mL (0.47 - 4.68)
[2023-02-12 13:49] LABS: BUN 22 mg/dL (8-23); BUN/CREATININE RATIO 23 (12-20 (CALC)); CARBON DIOXIDE 28 mmol/l (22-30); CHLORIDE 103 mmol/l (95-108); GFR FOR AFR.AMER. > 60 ML/MIN (>=60 (CALC)); GFR OTHER RACES 56 ML/MIN (>=60 (CALC)); POTASSIUM 4.3 mmol/l (3.5-5.1)
[2023-02-12 13:50] LABS: ANION GAP 9 (6-22 (CALC)); SODIUM 136 mmol/l (137-146)
[2023-02-12 15:21] VITALS: BP 134/76
[2023-02-12 17:44] VITALS: BP 150/73
[2023-02-12 18:20] VITALS: BP 150/73
[2023-02-12 23:31] VITALS: BP 134/60
[2023-02-12 23:40] VITALS: BP 134/60
[2023-02-13 05:31] LABS: HEMATOCRIT 34.7 % (37.0-47.0); HEMOGLOBIN 11.7 g/dl (12.0-16.0); MEAN CELL VOLUME 90.6 fL CALC (80.0-100.0); MEAN CORPUSCULAR HGB 30.5 pG CALC (26.0-32.0); MEAN CORPUSCULAR HGB CONC 33.7 g/dL CAL (32.0-36.0); RED BLOOD COUNT 3.83 mill/uL (4.20-5.60); RED CELL DISTRI WIDTH 12.4 % (11.5-15.5)
[2023-02-13 05:47] LABS: ALBUMIN 3.4 g/dL (3.2-5.0); ALKALINE PHOSPHATASE 61 u/l (38-126); ANION GAP 9 (6-22 (CALC)); BILIRUBIN, TOTAL 0.4 mg/dL (0.02-1.3); BUN 19 mg/dL (8-23); BUN/CREATININE RATIO 20 (12-20 (CALC)); CARBON DIOXIDE 25 mmol/l (22-30); CHLORIDE 108 mmol/l (95-108); CREATININE 0.9 mg/dL (0.5-1.0); GFR FOR AFR.AMER. > 60 ML/MIN (>=60 (CALC)); GFR OTHER RACES > 60 ML/MIN (>=60 (CALC)); MAGNESIUM 1.6 mg/dL (1.6-2.3); POTASSIUM 4.2 mmol/l (3.5-5.1); SGOT/AST 28 u/l (9-36); SODIUM 137 mmol/l (137-146); TOTAL PROTEIN 5.9 g/dL (6.3-8.2)
[2023-02-13 07:45] VITALS: BP 134/60
[2023-02-13] MEDS ORDERED: ATORVASTATIN CA40 MG PO (12:44)
== END 2023-02-13 14:19 | disposition home or self-care (01) ==
LOC: ED 14:07 → ED-I 15:04 → ED 15:04 → ED-I 17:08 → ED 17:33 → MS2 17:34
PROVIDERS: Nurse Practitioner; ADMIT Student in an Organized Health Care Education/Training Program; ATTEND Student in an Organized Health Care Education/Training Program
DX: R20.2 Paresthesia of skin (principal); I25.118 Atherosclerotic heart disease of native coronary artery with other forms of angina pectoris; I10 Essential (primary) hypertension; E11.9 Type 2 diabetes mellitus without complications; I44.7 Left bundle-branch block, unspecified; E78.5 Hyperlipidemia, unspecified; Z95.5 Presence of coronary angioplasty implant and graft; Z85.528 Personal history of other malignant neoplasm of kidney; Z79.4 Long term (current) use of insulin; Z87.891 Personal history of nicotine dependence
CPT/HCPCS: J1650; Q9967

== ENCOUNTER 2023-05-24 01:40 | Emergency (ER) | payer MEDICARE ==
[~2023-05-24] VITALS: Ht 162.6 cm; Wt 62.5 kg
[2023-05-24] VITALS (7 sets, daily range): BP systolic 116–196; BP diastolic 59–102
[~2023-05-24 01:40] MED LIST changes: +ATORVASTATIN CA40 MG PO; +B COMPLETE PO; +B12 LIQUID SL; +L-LYSINE500 M2 PO; +MAGNESIUM OXID400 M1; +OZEMPIC4 MG
[2023-05-24 02:53] LABS: BASO% 0.5 % (0-3); EOS% 3.1 % (0-8); HEMATOCRIT 41.1 % (37.0-47.0); HEMOGLOBIN 13.4 g/dl (12.0-16.0); IMMATURE GRANULOCYTES 0.1 % (0.0-5.0); LYMPH% 32.5 % (15-41); MEAN CORPUSCULAR HGB CONC 32.6 g/dL CAL (32.0-36.0); MONO% 6.5 % (2-13); NEUT# 4.83 thou/uL (2.00-7.15); NEUT% 57.3 % (42-76); RED BLOOD COUNT 4.62 mill/uL (4.20-5.60); RED CELL DISTRI WIDTH 13.2 % (11.5-15.5)
[2023-05-24 03:34] LABS: ALBUMIN 3.8 g/dL (3.2-5.0); ALKALINE PHOSPHATASE 90 u/l (38-126); ANION GAP 16 (6-22 (CALC)); BILIRUBIN, TOTAL 0.3 mg/dL (0.02-1.3); BUN 19 mg/dL (8-23); BUN/CREATININE RATIO 24 (12-20 (CALC)); CHLORIDE 103 mmol/l (95-108); CREATININE 0.8 mg/dL (0.5-1.0); GFR FOR AFR.AMER. > 60 ML/MIN (>=60 (CALC)); GFR OTHER RACES > 60 ML/MIN (>=60 (CALC)); LIPASE 208 u/l (23-300); POTASSIUM 3.6 mmol/l (3.5-5.1); SGOT/AST 34 u/l (9-36); SODIUM 138 mmol/l (137-146); TOTAL PROTEIN 6.7 g/dL (6.3-8.2)
[2023-05-24 03:39] LABS: D-DIMER 3.62 mg/L (0.19-0.60)
[2023-05-24 03:45] LABS: ACT PARTIAL THROMBO TIME 24.5 SECONDS (20.0-32.5); INTERNATIONAL NORMALIZED RATIO 1.1 RATIO (0.7-1.3); PROTHROMBIN TIME 10.3 SECONDS (9.0-12.5)
[2023-05-24 03:47] LABS: CARBON DIOXIDE 23 mmol/l (22-30)
== END 2023-05-24 06:39 | disposition home or self-care (01) ==
LOC: ED 01:40
PROVIDERS: Emergency Medicine
DX: R07.9 Chest pain, unspecified (principal); M54.6 Pain in thoracic spine; I10 Essential (primary) hypertension; E11.9 Type 2 diabetes mellitus without complications; E78.5 Hyperlipidemia, unspecified; Z95.5 Presence of coronary angioplasty implant and graft; Z79.4 Long term (current) use of insulin; Z95.1 Presence of aortocoronary bypass graft; Z20.822 Contact with and (suspected) exposure to COVID-19
CPT/HCPCS: Q9967